=== PATIENT | female | born 2000 | race Hispanic/Latino ===

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

== ENCOUNTER 2018-01-27 20:24 | Emergency (ER) | payer MEDICAID, OTHER ==
[2018-01-27 21:34] LABS: APPEARANCE,URINE Clear (CLEAR); BILIRUBIN,URINE Negative (NEGATIVE); COLOR,URINE Yellow (YELLOW); GLUCOSE, URINE (UA) Negative (NEGATIVE); KETONES,URINE Negative (NEGATIVE); LEUKOCYTE ESTERASE ,URINE Trace (NEGATIVE); NITRATE,URINE Negative (NEGATIVE); OCCULT BLOOD,URINE Negative (NEGATIVE); PH,URINE 7.5 (5.0-8.0); PROTEIN,URINE Negative (NEGATIVE); UROBILINOGEN,URINE 0.2 mg/dL (0.2-1.0)
[2018-01-27 21:58] LABS: RBC,URINE 0-1 /HPF (0-1); SQUAMOUS EPITHELIAL CELL,UR Rare /HPF (0-2); WBC,URINE 0-1 /HPF (0-1)
[2018-01-27 21:59] LABS: BACTERIA,URINE Few /HPF (None Seen)
== END 2018-01-27 22:20 | disposition home or self-care (01) ==
LOC: EDH 20:24
DX: B37.3 Candidiasis of vulva and vagina (principal); Z88.1 Allergy status to other antibiotic agents
CPT/HCPCS: 81001; 81025

== ENCOUNTER 2019-02-07 20:59 | Emergency (ER) | payer OTHER ==
[2019-02-07] MEDS ORDERED: IPRATROPIUM/ALBUTEROL SULFATE 3 ML SOLUTION IH ONE (21:43)
[2019-02-07 22:00] LABS: RAPID GROUP A STREP NEGATIVE (NEGATIVE)
== END 2019-02-07 22:33 | disposition home or self-care (01) ==
LOC: EDH 20:59
DX: J20.9 Acute bronchitis, unspecified (principal)
CPT/HCPCS: 71046; 81025; 87804; 87880; 94640

== ENCOUNTER 2019-10-03 23:38 | Emergency (ER) | payer SELFPAY ==
[2019-10-04 00:21] LABS: HCG,QUAL RESULT NEGATIVE (NEGATIVE)
[2019-10-04 00:27] LABS: AMPHET/METH SCREEN,URINE NEGATIVE (NEGATIVE); BARBITURATE SCREEN, URINE NEGATIVE (NEGATIVE); BENZODIAZEPINES SCREEN,URINE NEGATIVE (NEGATIVE); CANNABINOID SCREEN,URINE NEGATIVE (NEGATIVE); COCAINE SCREEN,URINE NEGATIVE (NEGATIVE); OPIATE SCREEN,URINE NEGATIVE (NEGATIVE); PHENCYCLIDINE SCREEN,URINE NEGATIVE (NEGATIVE)
[2019-10-04] MEDS ORDERED: MECLIZINE HCL 25 MG TABLET ONE (00:31)
[2019-10-04 00:39] LABS: CREATININE 0.7 mg/dL (0.5-1.5); POTASSIUM 3.3 mmol/L (3.5-5.1)
[2019-10-04 00:44] LABS: ALBUMIN 3.7 g/dL (3.5-5.0); BILIRUBIN,TOTAL 0.2 mg/dL (0.2-1.0); TOTAL PROTEIN, SERUM 6.8 g/dL (6.0-8.3)
[2019-10-04 01:00] LABS: BASOPHILS % (AUTO) 1.2 % (0.0-5.0); EOSINOPHILS % (AUTO) 7.1 % (0.0-8.0); HEMATOCRIT 37.4 % (36-48); LYMPHOCYTES % (AUTO) 43.5 % (21.0-51.0); MEAN CORPUSCULAR HEMOGLOBIN 29.8 pg (27.0-33.0); MEAN CORPUSCULAR VOLUME 87.8 fL (80-100); MONOCYTES % (AUTO) 10.8 % (3.0-13.0); PLATELET COUNT (AUTO) 221 K/uL (130-400); RED BLOOD CELL COUNT(AUTO) 4.26 MIL/uL (4.00-5.50); RED CELL DISTRIBUTION WIDTH 13.5 % (11.0-15.5); WHITE BLOOD COUNT (AUTO) 5.6 K/uL (4.8-10.8)
== END 2019-10-04 01:22 | disposition home or self-care (01) ==
LOC: EDH 23:38
DX: S09.90XA Unspecified injury of head, initial encounter (principal); H81.399 Other peripheral vertigo, unspecified ear; Z72.0 Tobacco use; W22.8XXA Striking against or struck by other objects, initial encounter; Y93.89 Activity, other specified; Y92.89 Other specified places as the place of occurrence of the external cause; Y99.8 Other external cause status
CPT/HCPCS: 36415; 70450; 80053; 80305; 81025; 85025

== ENCOUNTER 2021-05-27 18:11 | Emergency (ER) | payer MEDICAID ==
[~2021-05-27] VITALS: Ht 160 cm; Wt 62.6 kg
[2021-05-27 19:30] LABS: APPEARANCE,URINE Clear (CLEAR); BILIRUBIN,URINE Negative (NEGATIVE); COLOR,URINE Yellow (YELLOW); GLUCOSE, URINE (UA) Negative (NEGATIVE); KETONES,URINE Negative (NEGATIVE); LEUKOCYTE ESTERASE ,URINE Trace (NEGATIVE); NITRATE,URINE Negative (NEGATIVE); OCCULT BLOOD,URINE Large (NEGATIVE); PROTEIN,URINE Trace mg/dL (NEGATIVE)
[2021-05-27] MEDS ORDERED: ACETAMINOPHEN 500 MG TABLET PO ONE (19:30)
[2021-05-27] MEDS ORDERED: 0.9%NACL 1000ML 1,000 ML IV ONE (19:30)
[2021-05-27 19:31] LABS: HCG,QUAL RESULT NEGATIVE (NEGATIVE)
[2021-05-27 19:45] LABS: BASOPHILS % (AUTO) 0.4 % (0.0-5.0); EOSINOPHILS % (AUTO) 0.2 % (0.0-8.0); HEMATOCRIT 39.3 % (36-48); LYMPHOCYTES % (AUTO) 9.3 % (21.0-51.0); MEAN CORPUSCULAR HEMOGLOBIN 27.1 pg (27.0-33.0); MEAN CORPUSCULAR HGB CONC 32.1 g/dL (32.0-36.0); MEAN CORPUSCULAR VOLUME 84.5 fL (79-99); MONOCYTES % (AUTO) 5.1 % (3.0-13.0); NEUTROPHILS % (AUTO) 84.5 % (40.0-77.0); PLATELET COUNT (AUTO) 253 K/uL (130-400); RED BLOOD CELL COUNT(AUTO) 4.65 MIL/uL (4.00-5.50); RED CELL DISTRIBUTION WIDTH 14.5 % (11.0-15.5); WHITE BLOOD COUNT (AUTO) 11.1 K/uL (4.8-10.8)
[2021-05-27 19:56] LABS: BACTERIA,URINE Rare /HPF (None Seen); WBC,URINE 0-1 /HPF (0-1)
[2021-05-27 19:58] LABS: CREATININE 0.8 mg/dL (0.5-1.5); POTASSIUM 3.2 mmol/L (3.5-5.1)
[2021-05-27 20:02] LABS: ALBUMIN 3.9 g/dL (3.5-5.0); BILIRUBIN,TOTAL 0.3 mg/dL (0.2-1.0); CRP QUANTITATIVE 69.3 mg/L (0.00-9.0); TOTAL PROTEIN, SERUM 7.4 g/dL (6.0-8.3)
[2021-05-27] MEDS ORDERED: IBUP-1552 PO (20:22)
[2021-05-27] MEDS ORDERED: ACET-2247 PO (20:22)
[2021-05-27 21:08] VITALS: BP 118/69
[2021-05-27] MEDS ORDERED: POTASSIUM BICARB/CIT AC 25 MEQ TABLET.EFF PO ONE (21:30)
== END 2021-05-27 21:17 | disposition home or self-care (01) ==
LOC: EDH 18:11
DX: J06.9 Acute upper respiratory infection, unspecified (principal); E86.0 Dehydration; R35.0 Frequency of micturition; Z20.822 Contact with and (suspected) exposure to COVID-19; Z88.0 Allergy status to penicillin; Z79.1 Long term (current) use of non-steroidal anti-inflammatories (NSAID)
CPT/HCPCS: 36415; 71045; 80053; 81001; 81025; 85025; 86140; 87426; 87804 ×2; 87880; 96360; 99284; J7030

== ENCOUNTER 2021-08-17 04:12 | Emergency (ER) | payer MEDICAID ==
[~2021-08-17] VITALS: Ht 160 cm; Wt 67.1 kg
[~2021-08-17 04:12] MED LIST: ACET-2247 PO; IBUP-1552 PO
[2021-08-17 04:22] VITALS: BP 93/57
[2021-08-17 04:33] LABS: BILIRUBIN,URINE Negative (NEGATIVE); COLOR,URINE Yellow (YELLOW); GLUCOSE, URINE (UA) Negative (NEGATIVE); KETONES,URINE Trace mg/dL (NEGATIVE); LEUKOCYTE ESTERASE ,URINE Moderate (NEGATIVE); NITRATE,URINE Negative (NEGATIVE); OCCULT BLOOD,URINE Nonhemolyzed Trace (NEGATIVE); PH,URINE 5.5 (5.0-8.0); PROTEIN,URINE POS 1+ mg/dL (NEGATIVE)
[2021-08-17 04:34] LABS: APPEARANCE,URINE SLIGHTLY CLOUDY (CLEAR)
[2021-08-17 04:35] LABS: HCG,QUAL RESULT NEGATIVE (NEGATIVE)
[2021-08-17 04:43] LABS: BACTERIA,URINE Few /HPF (None Seen); MUCUS,URINE Few LPF (None Seen); WBC,URINE 51-100 /HPF (0-1)
[2021-08-17] MEDS ORDERED: PHEN-776 PO (04:50)
[2021-08-17] MEDS ORDERED: ONDA4TAB10 PO (04:50)
[2021-08-17] MEDS ORDERED: CEPH500B PO (04:50)
[2021-08-17] MEDS ORDERED: DICY20TA2 PO (04:50)
[2021-08-17] MEDS ORDERED: PHENAZOPYRIDINE HCL 200 MG TABLET PO ONE (05:00)
[2021-08-17] MEDS ORDERED: CEPHALEXIN 500 MG CAPSULE PO ONE (05:00)
[2021-08-17] MEDS ORDERED: DICYCLOMINE HCL 20 MG TAB PO ONE (05:00)
[2021-08-17] MEDS ORDERED: ONDANSETRON ODT 4MG TAB SL ONE (05:00)
== END 2021-08-17 05:27 | disposition home or self-care (01) ==
LOC: EDH 04:12
DX: N39.0 Urinary tract infection, site not specified (principal); R11.2 Nausea with vomiting, unspecified; Z88.1 Allergy status to other antibiotic agents; Z91.040 Latex allergy status; Z79.899 Other long term (current) drug therapy
CPT/HCPCS: 81001; 81025; 87088

== ENCOUNTER 2021-08-26 22:29 | Emergency (ER) | payer OTHER, MEDICAID ==
[~2021-08-26] VITALS: Ht 160 cm; Wt 61.2 kg
[~2021-08-26 22:29] MED LIST changes: +CEPH500B PO; +DICY20TA2 PO; +ONDA4TAB10 PO; +PHEN-776 PO
[2021-08-26 22:45] VITALS: BP 115/67
[2021-08-26 23:02] LABS: BASOPHILS % (AUTO) 0.8 % (0.0-5.0); EOSINOPHILS % (AUTO) 1.4 % (0.0-8.0); HEMATOCRIT 39.9 % (36-48); LYMPHOCYTES % (AUTO) 33.5 % (21.0-51.0); MEAN CORPUSCULAR HEMOGLOBIN 27.6 pg (27.0-33.0); MEAN CORPUSCULAR HGB CONC 32.3 g/dL (32.0-36.0); MEAN CORPUSCULAR VOLUME 85.3 fL (79-99); MONOCYTES % (AUTO) 10.1 % (3.0-13.0); NEUTROPHILS % (AUTO) 53.8 % (40.0-77.0); PLATELET COUNT (AUTO) 298 K/uL (130-400); RED BLOOD CELL COUNT(AUTO) 4.68 MIL/uL (4.00-5.50); RED CELL DISTRIBUTION WIDTH 13.8 % (11.0-15.5); WHITE BLOOD COUNT (AUTO) 7.3 K/uL (4.8-10.8)
[2021-08-26] MEDS ORDERED: NITR30OI6 RC (23:16)
== END 2021-08-26 23:27 | disposition home or self-care (01) ==
LOC: EDH 22:29
DX: K60.0 Acute anal fissure (principal); Z88.0 Allergy status to penicillin; Z79.1 Long term (current) use of non-steroidal anti-inflammatories (NSAID)
CPT/HCPCS: 36415; 85025

== ENCOUNTER 2021-09-03 21:30 | Emergency (ER) | payer OTHER, MEDICAID ==
[~2021-09-03] VITALS: Ht 160 cm; Wt 62.6 kg
[~2021-09-03 21:30] MED LIST changes: +NITR30OI6 RC
[2021-09-03] MEDS ORDERED: ACETAMINOPHEN 500 MG TABLET ONE (22:03)
[2021-09-03 22:19] LABS: HEMATOCRIT 42.3 % (36-48); MEAN CORPUSCULAR HEMOGLOBIN 27.1 pg (27.0-33.0); MEAN CORPUSCULAR HGB CONC 31.7 g/dL (32.0-36.0); MEAN CORPUSCULAR VOLUME 85.6 fL (79-99); PLATELET COUNT (AUTO) 241 K/uL (130-400); RED BLOOD CELL COUNT(AUTO) 4.94 MIL/uL (4.00-5.50); RED CELL DISTRIBUTION WIDTH 13.6 % (11.0-15.5); WHITE BLOOD COUNT (AUTO) 8.6 K/uL (4.8-10.8)
[2021-09-03 22:29] LABS: CREATININE 0.9 mg/dL (0.5-1.5); POTASSIUM 3.5 mmol/L (3.5-5.1)
[2021-09-03] MEDS ORDERED: ACETAMINOPHEN 500 MG TABLET PO ONE (22:30)
[2021-09-03 22:34] LABS: BILIRUBIN,TOTAL 0.2 mg/dL (0.2-1.0); TOTAL PROTEIN, SERUM 8.3 g/dL (6.0-8.3)
[2021-09-03 22:38] LABS: APPEARANCE,URINE Clear (CLEAR); BILIRUBIN,URINE Negative (NEGATIVE); COLOR,URINE Yellow (YELLOW); GLUCOSE, URINE (UA) Negative (NEGATIVE); KETONES,URINE Negative (NEGATIVE); LEUKOCYTE ESTERASE ,URINE Negative (NEGATIVE); NITRATE,URINE Negative (NEGATIVE); OCCULT BLOOD,URINE Negative (NEGATIVE); PH,URINE 6.5 (5.0-8.0); PROTEIN,URINE Negative (NEGATIVE)
[2021-09-03 22:52] LABS: LYMPHOCYTES % (MANUAL) 16 % (22-44); MAN.DIFF COMMENT-IMPRESSION MANUAL DIFFERENTIAL; MONOCYTES % (MANUAL) 7 % (2-9); REACTIVE LYMPHOCYTES 1 % (0-0); SEGMENTED NEUTROPHILS % 76 % (40-70)
[2021-09-03 22:53] LABS: PLATELET MORPHOLOGY COMMENT ADEQUATE
[2021-09-03] MEDS ORDERED: 0.9%NACL 1000ML 1,000 ML IV ONE (23:00)
[2021-09-03] MEDS ORDERED: KETOROLAC 15MG/ML VIAL (15MG/ML) IV ONE (23:00)
[2021-09-04 01:09] VITALS: BP 120/60
[2021-09-04] MEDS ORDERED: CEPH500B PO (01:29)
[2021-09-04] MEDS ORDERED: IBUP-2070 PO (01:29)
[2021-09-04] MEDS ORDERED: CEFTRIAXONE 1G VIAL IVP ONE (01:30)
[2021-09-04] MEDS ORDERED: AZITHROMYCIN 250 MG TABLET PO ONE (01:30)
[2021-09-04] MEDS ORDERED: PHARMACY COMMUNICATION MISC SCH ×2 (01:30→02:00)
[2021-09-04] MEDS ORDERED: CEFTRIAXONE 1G VIAL ONE (01:33)
== END 2021-09-04 01:53 | disposition home or self-care (01) ==
LOC: EDH 21:30
DX: N39.0 Urinary tract infection, site not specified (principal); R50.9 Fever, unspecified; E86.0 Dehydration; Z20.822 Contact with and (suspected) exposure to COVID-19; Z88.1 Allergy status to other antibiotic agents; Z91.040 Latex allergy status; Z79.899 Other long term (current) drug therapy
CPT/HCPCS: 36415; 76856; 80053; 81003; 81025; 83605; 85025; 86308; 87210; 87486; 87635; 87797; 87804 ×2; 87880; 96361; 96374; 96375; 99284; C9803; J0696; J1885; J7030

== ENCOUNTER 2022-09-23 17:10 | Emergency (ER) | payer OTHER, MEDICAID ==
[~2022-09-23] VITALS: Ht 157.5 cm; Wt 62.6 kg
[~2022-09-23 17:10] MED LIST changes: +IBUP-2070 PO
[2022-09-23 18:05] VITALS: BP 111/47
[2022-09-23] MEDS ORDERED: AZIT250T9 PO (20:01)
== END 2022-09-23 20:21 | disposition home or self-care (01) ==
LOC: EDH 17:10
DX: J02.9 Acute pharyngitis, unspecified (principal); R50.9 Fever, unspecified; Z20.822 Contact with and (suspected) exposure to COVID-19; Z88.0 Allergy status to penicillin; Z91.040 Latex allergy status
CPT/HCPCS: 99283; 87635; 87880; 87804 ×2; C9803

== ENCOUNTER 2023-09-21 09:29 | Emergency (ER) | payer MEDICAID, OTHER ==
[~2023-09-21] VITALS: Ht 160 cm; Wt 67.1 kg
[~2023-09-21 09:29] MED LIST changes: +AZIT250T9 PO
[2023-09-21 10:30] LABS: HCG,QUALITATIVE URINE NEGATIVE (NEGATIVE)
[2023-09-21 10:31] LABS: ADD UA MICROSCOPIC YES; APPEARANCE,URINE CLEAR (CLEAR); BILIRUBIN,URINE NEGATIVE (NEGATIVE); COLOR,URINE COLORLESS (YELLOW); GLUCOSE, URINE (UA) NEGATIVE (NEGATIVE); KETONES,URINE NEGATIVE (NEGATIVE); LEUKOCYTE ESTERASE ,URINE 25 Leu/uL (NEGATIVE); NITRATE,URINE NEGATIVE (NEGATIVE); OCCULT BLOOD,URINE NEGATIVE (NEGATIVE); PROTEIN,URINE NEGATIVE (NEGATIVE); UROBILINOGEN,URINE 0.2 mg/dL (0.2-1.0)
[2023-09-21 10:38] LABS: HEMATOCRIT 39.1 % (36-48); MEAN CORPUSCULAR HEMOGLOBIN 30.1 pg (27.0-33.0); MEAN CORPUSCULAR VOLUME 88.5 fL (79-99); PLATELET COUNT (AUTO) 227 K/uL (130-400); RED BLOOD CELL COUNT(AUTO) 4.42 MIL/uL (4.00-5.50); RED CELL DISTRIBUTION WIDTH 12.3 % (11.0-15.5); WHITE BLOOD COUNT (AUTO) 5.6 K/uL (4.8-10.8)
[2023-09-21 10:47] LABS: CREATININE 0.7 mg/dL (0.5-1.0); POTASSIUM 3.8 mmol/L (3.5-5.1)
[2023-09-21 10:52] LABS: ALBUMIN 3.9 g/dL (3.5-5.0); BILIRUBIN,DIRECT 0.1 mg/dL (0.0-0.3); BILIRUBIN,TOTAL 0.3 mg/dL (0.2-1.0); TOTAL PROTEIN, SERUM 7.2 g/dL (6.0-8.3)
[2023-09-21 11:02] LABS: RBC,URINE 0-1 /HPF (0-1); SQUAMOUS EPITHELIAL CELL,UR FEW /HPF (0-2); WBC,URINE 0-1 /HPF (0-1)
[2023-09-21 12:15] LABS: EOSINOPHILS % (MANUAL) 7 % (1-6); LYMPHOCYTES % (MANUAL) 43 % (22-44); MAN.DIFF COMMENT-IMPRESSION MANUAL DIFFERENTIAL; MONOCYTES % (MANUAL) 6 % (2-9); PLATELET MORPHOLOGY COMMENT ADEQUATE; SEGMENTED NEUTROPHILS % 44 % (40-70); TOTAL CELLS COUNTED 100
[2023-09-21 14:29] VITALS: BP 106/56; PULSE 77; RESP 17; O2SAT 97
== END 2023-09-21 14:30 | disposition home or self-care (01) ==
LOC: EDH 09:29
DX: R10.9 Unspecified abdominal pain (principal); R19.7 Diarrhea, unspecified; Z79.899 Other long term (current) drug therapy; Z98.890 Other specified postprocedural states; Z88.0 Allergy status to penicillin; Z88.8 Allergy status to other drugs, medicaments and biological substances
CPT/HCPCS: 36415; 74176; 80048; 80076; 81001; 81025; 83690; 85025

== ENCOUNTER 2024-04-09 13:38 | Observation (INO) | payer MEDICAID ==
[~2024-04-09] VITALS: Ht 160 cm; Wt 70.8 kg
[~2024-04-09 13:38] MED LIST changes: +ONDA-243 PO; -ONDA4TAB10 PO
[2024-04-09 13:39] VITALS: BP 114/71; PULSE 90; TEMP 97.8
[2024-04-09] MEDS ORDERED: LACTATED RINGERS 1000ML 1,000 ML IV SCH (14:00)
[2024-04-09 14:10] LABS: APPEARANCE,URINE CLOUDY (CLEAR); BILIRUBIN,URINE NEGATIVE (NEGATIVE); COLOR,URINE LIGHT-YELLOW (YELLOW); GLUCOSE, URINE (UA) NEGATIVE (NEGATIVE); KETONES,URINE NEGATIVE (NEGATIVE); LEUKOCYTE ESTERASE ,URINE 75 Leu/uL (NEGATIVE); NITRATE,URINE NEGATIVE (NEGATIVE); OCCULT BLOOD,URINE NEGATIVE (NEGATIVE); PH,URINE 6.5 (5.0-8.0); PROTEIN,URINE NEGATIVE (NEGATIVE); UROBILINOGEN,URINE 0.2 mg/dL (0.2-1.0)
[2024-04-09 14:22] LABS: ADD UA MICROSCOPIC YES
--- NOTE | 2024-04-09 14:41 | HMCIMG ---
US OB >14 WEEKS HISTORY: Leaking COMPARISON: None TECHNIQUE: ultrasound study was performed. FINDINGS: There is single intrauterine gestation with estimated gestational age of 30 weeks and 2 days. heart rate is 136 beats per minute. The fetus is in cephalic presentation with longitudinal lie. weight is estimated to be 1555 grams. Amniotic fluid volume is 11.6 centimeter. The placenta is located posteriorly. No evidence of placenta previa is seen. There is no evidence of nuchal cord. IMPRESSION: 1. There is single intrauterine gestation with estimated gestational age of 30 weeks and 2 days. heart rate is 136 beats per minute. Evaluation of anomaly is limited.
[2024-04-09 14:49] LABS: BACTERIA,URINE RARE /HPF (None Seen); MUCUS,URINE RARE LPF (None Seen); RBC,URINE 0-1 /HPF (0-1); SQUAMOUS EPITHELIAL CELL,UR MOD /HPF (0-2)
== END 2024-04-09 15:34 | disposition home or self-care (01) ==
LOC: EDH 13:38 → LDH 13:39 → EDH 13:44
PROVIDERS: ADMIT Obstetrics & Gynecology; ATTEND Obstetrics & Gynecology
DX: O62.9 Abnormality of forces of labor, unspecified (principal); Z3A.31 31 weeks gestation of pregnancy; Z79.899 Other long term (current) drug therapy; Z98.890 Other specified postprocedural states
CPT/HCPCS: 87086; 81001; 76805; 82120; G0378 ×2; G0379; 59025

== ENCOUNTER 2024-10-13 12:38 | Emergency (ER) | payer MEDICAID ==
[~2024-10-13] VITALS: Ht 160 cm; Wt 52.2 kg
--- NOTE | 2024-10-13 13:17 | ERN ---
ED Note History of Present Illness Stated Complaint: STIFFNESS IN MUSCLES, CHEST INFECTION Chief Complaint: Muscle Spasm Time Seen by MD: 12:47 Time Seen by Midlevel: 12:48 Dictation: 23-year-old female presents to the emergency department due to reported having fever, chills, runny nose and a nonproductive cough that began 2 days ago. She states that her temperature has been as high as 100.2 F. Patient states that she was evaluated at a local emergency department and was told that she had the beginning signs of pneumonia. She states that she was around a person who had the similar symptoms. Upon initial evaluation, the patient presents in no acute respiratory distress. Allergies: Coded Allergies: amoxicillin (Unverified Allergy, Unknown, 05/27/21) latex (Unverified Allergy, Unknown, 05/27/21) Emergency Care [employer]: None Home Meds Active Scripts Azithromycin (Azithromycin) 250 Mg Tablet, 250 MG PO BID for 5, #6 TAB Prov:BROOKE GALLEGOS 09/23/22 Cephalexin Monohydrate (Keflex) 500 Mg Cap, 500 MG PO BID for 7 Days, #14 CAP Prov:AYANNA HENRY MD 09/04/21 Ibuprofen (Ibuprofen) 600 Mg Tablet, 600 MG PO Q6H PRN for PAIN, #30 TAB Prov:AYANNA HENRY MD 09/04/21 Nitroglycerin (Rectiv) 30 Gm Oint...g., 1 APPL RC BID, #1 TUBE 1 Refill Prov:ERIKA HARMON MD 08/26/21 Ondansetron (Ondansetron Odt) 4 Mg Tab.rapdis, 4 MG PO Q6HPRN, #20 TAB 0 Refills Prov:ANUM MCNAIR MD 08/17/21 Dicyclomine HCl (Bentyl) 20 Mg Tab, 20 MG PO Q6HPRN, #20 TAB 0 Refills Prov:ANUM MCNAIR MD 08/17/21 Phenazopyridine HCl (Pyridium) 200 Mg Tablet, 200 MG PO TID, #6 TAB 0 Refills Prov:ANUM MCNAIR MD 08/17/21 Cephalexin Monohydrate (Keflex) 500 Mg Cap, 500 MG PO QID for 10 Days, #40 CAP 0 Refills Prov:ANUM MCNAIR MD 08/17/21 Acetaminophen (Tylenol) 325 Mg Tablet, 650 MG PO Q4HPRN, #50 TAB Prov:ROVERTO MIRAMONTES 05/27/21 Ibuprofen (Ibu) 400 Mg Tablet, 600 MG PO TIDAC, #60 TAB Prov:AB KULWINDERELATAHIR WHITAKER 05/27/21 Past Medical History Past Medical History: Kidney Stone Surgical History: None PSYCH History: no pertinent psych hx Social History: Negative, Lives with family, Other History: Not Applicable LMP: Oct 11, 2024 : 2 Para: 1 Aborts: 0 RN Note Reviewed/Agreed w/PFSH: Yes Review of System Dictation Constitutional: Fever, chills ENT: Right nose, sore throat Respiratory: Nonproductive cough Initial Vital Sign VS Vital Signs Date Time Temp Pulse Resp B/P (MAP) Pulse Ox O2 Delivery O2 Flow Rate FiO2 10/13/24 12:45 97.2 74 16 122/67 98 Room Air* 0 21 Physical Exam Dictation General: awake, alert, NAD Head/Face: Normocephalic, atraumatic Eyes: PERRL, EOMI ENT: Oral mucosa moist Neck: Trachea midline, supple Cardiovascular: RRR, no edema Respiratory: Symmetrical, non-labored Abdomen: Soft, non-tender, non-distended, no guarding. Skin: Warm, dry, good turgor, no rash MS/Extremity: Pulses equal, no cyanosis, neurovascular intact, FROM Neuro: COAx4, GCS 15, steady gait, Psych: Normal behavior, mood, and affect normal Results (Laboratory/Radiology) Laboratory/Radiology Laboratory Tests Test 10/13/24 13:31 Urine HCG, Qualitative NEGATIVE (NEGATIVE) Influenza Type A Antigen Negative For Type A Influenza Type B Antigen Negative For Type B SARS-CoV-2 Antigen (Rapid) PRESUMPTIVE NEGATIVE Group A Streptococcus Rapid negative (NEGATIVE) Labs Reviewed?: Yes X-RAY Comment: Chest x-ray one view with no infiltrates and a normal appearing cardiac silhouette as interpreted by me. ED Course ED Course Orders Procedure Category Date Status Time Influenza Type A & B, LAB 10/13/24 Complete Rapid 13:10 Rapid (Group A Strep) LAB 10/13/24 Complete 13:10 ,Urine Test LAB 10/13/24 Complete 13:10 Covid19 (Sars Antigen LAB 10/13/24 Complete Rapid) 13:10 Chest 1vw RAD 10/13/24 Resulted 13:10 Vital Signs Date Time Temp Pulse Resp B/P (MAP) Pulse Ox O2 Delivery O2 Flow Rate FiO2 10/13/24 13:46 97.2 72 16 120/65 98 Room Air* 0 21 10/13/24 12:45 97.2 74 16 122/67 98 Room Air 0 10/13/24 12:45 97.2 74 16 122/67 98 Room Air* 0 21 Medical Decision Making MDM MDM: Differential diagnosis: Influenza, viral illness, pneumonia. Rationale: Tests considered and ordered secondary to shared decision making include: Previous outside records reviewed: Old ER visits. Risk of complication and/or morbidity or mortality of patient management: None Medications-Per medication reconciliation Need for hospitalization: Patient does not meet criteria for hospitalization. Need for emergency major/minor surgery: No There are no social concerns with this patient. Prescription drug management Prescriptions will include symptomatic care Patient's prior external medical records from other ER visits were reviewed by me as indicated. Prior testing and results from previous visits were reviewed. Prior tests were taken into account with medical decision making and resource utilization, independent historian/historians were used to obtain complete medical history. I independently interpreted the test that were performed, results were reviewed by me and considered findings on radiology if ordered. Medical management and examination interpretation discussions were had by me with other qualified healthcare professionals as indicated for the patient's care. DX & DISP Disposition: Discharge Departure Impression: Primary Impression: Viral illness Condition: Stable Referrals: MILAGROS CHOWDARY (PCP) BOB HASTINGS Oct 13, 2024 13:17
[2024-10-13 14:03] LABS: COVID19 (SARS ANTIGEN RAPID) PRESUMPTIVE NEGATIVE (NEGATIVE); INFLUENZA TYPE A Negative For Type A (NEGATIVE); INFLUENZA TYPE B Negative For Type B (NEGATIVE)
[2024-10-13 14:24] LABS: RAPID GROUP A STREP negative (NEGATIVE)
--- NOTE | 2024-10-13 14:43 | HMCIMG ---
Exam Type: CHEST 1VW Clinical Information: cough Comparison: None Findings: The lungs are clear of infiltrates. The heart is normal in size. The bony and soft tissue structures of the chest are unremarkable. Impression: Clear lungs.
[2024-10-13 14:47] VITALS: BP 124/68; PULSE 72; RESP 18; TEMP 97.1; O2SAT 98
== END 2024-10-13 14:52 | disposition home or self-care (01) ==
LOC: EDH 12:38
DX: B34.9 Viral infection, unspecified (principal); Z88.0 Allergy status to penicillin; Z20.822 Contact with and (suspected) exposure to COVID-19
CPT/HCPCS: 71045; 81025; 87426; 87804; 87880; 99284